=== PATIENT | female | born 1995 | race Caucasian/White ===

== ENCOUNTER 2016-10-10 10:40 | Emergency (ER) | payer OTHER ==
[2016-10-10 10:53] VITALS: BP 114/72; PULSE 88; TEMP 97.8; BMI 18.6
[2016-10-10] MEDS ORDERED: ONDANSETRON 4 MG/2 ML VIAL IVPB ONE (11:03)
[2016-10-10] MEDS ORDERED: ONDANSETRON 4 MG/2 ML VIAL ONE (11:06)
--- NOTE | 2016-10-10 11:14 | PDOC ---
History of Present Illness - General Chief Complaint: Syncope/Near Syncope Stated Complaint: SYNCOPE, FALL Time Seen by Provider: 10/10/16 10:44 - History of Present Illness Initial Comments: 10/10/16 11:14 21-year-old female with a past medical history of prior syncopal episodes in medical settings She otherwise has a negative past medical history, and her only medications at this time - iron, and multivitamins She is ALLERGIC to amoxicillin LMP 09/23/16, normal and on time Patient states that she went to the eye doctor's office today, and her eyes were dilated by the deep submergence vehicle operator While she was sitting in the chair, in the office, she started feeling presyncopal, like her usual She had a witnessed syncopal episode, slid off the chair, and struck her face on the exam table on her way down to the floor She came around quickly, but did have a few twitches when she passed out She states that she did not eat anything this morning Patient states that on some of her prior syncopal episodes she had a little bit of twitching with the episode, but had a workup, and has no history of a seizure disorder Patient states that she's had multiple syncopal episodes in the past in medical settings, and with blood draw She awakened quickly with this episode and vomited twice, which is a little different for her, but now is feeling back to herself She did scrape her forehead and nose, and denies any other head injury She states when she came around, they gave her something to drink and the deep submergence vehicle operator office She denies any recent intercurrent illnesses She denies any other injury Remainder of the review of systems is negative Past History - Past Medical History Allergies/Adverse Reactions: Allergies Allergy/AdvReac Type Severity Reaction Status Date / Time amoxicillin Allergy Verified 10/10/16 10:43 Home Medications: Ambulatory Orders Iron 45 mg PO DAILY 10/10/16 Peppermint Oil [Ibgard] 90 mg PO 10/10/16 GI Disorders: Yes (GERD) Other medical history: H/O FAINTING EPISODES - Psycho/Social/Smoking Cessation Hx Anxiety: No Suicidal Ideation: No Smoking History: Never smoked Information on smoking cessation initiated: No Hx Alcohol Use: (occasional) Substance Use Type: None *Physical Exam - Vital Signs Last Vital Signs Temp Pulse Resp BP Pulse Ox 97.8 F 88 16 114/72 99 10/10/16 10:40 10/10/16 10:40 10/10/16 10:40 10/10/16 10:40 10/10/16 10:40 - Physical Exam Comments: 10/10/16 11:26 Physical exam Last Vital Signs Temp Pulse Resp BP Pulse Ox 97.8 F 88 16 114/72 99 10/10/16 10:40 10/10/16 10:40 10/10/16 10:40 10/10/16 11:10 10/10/16 10:40 GENERAL: The patient is awake, alert, and fully oriented, and in no apparent distress. HEAD: Normal with no signs of trauma. There is a forehead abrasion, and a contusion on the bridge of the nose EYES: Pupils are dilated (patient just came from ophthalmology office after being given dilating drops ), extraocular movements intact, sclera anicteric, conjunctiva are normal. ENT: TMs normal, nares patent, oropharynx clear without exudates. Moist mucous membranes. There is an abrasion and contusion on the bridge of the nose, but no clinical evidence of a nasal bone fracture NECK: Normal range of motion, supple without lymphadenopathy, JVD, or masses. No C-spine tenderness LUNGS: Breath sounds equal, clear to auscultation bilaterally. No wheezes, and no crackles. HEART: Regular rate and rhythm, normal S1 and S2 without murmur, rub or gallop. ABDOMEN: Soft, nontender, normoactive bowel sounds. No guarding, no rebound. No masses appreciated. EXTREMITIES: Normal range of motion, no edema. No clubbing or cyanosis. No cords, erythema, or tenderness. NEURO: Mental status: The patient is oriented x3. Cranial nerves: Cranial nerves II through XII are intact Motor: The upper extremities are 5 over 5 in all muscle groups. The lower extremities are 5 over 5 in all muscle groups. Sensation: Sensation is intact to light touch throughout. Cerebellar: Cbzeaa-zimfvi-uunf is normal in both upper extremities. Heel-knee- chaidez is normal in both lower extremities. Gait: Normal. Heel and toe walking are normal. Tandem gait is normal. PSYCH: Normal mood, normal affect. SKIN: Warm, Dry, ED Treatment Course - LABORATORY CBC & Chemistry Diagram: 10/10/16 11:00 10/10/16 11:00 Medical Decision Making - Medical Decision Making 10/10/16 11:28 21-year-old female with a history of prior syncopal episodes in the medical setting, was in the deep submergence vehicle operator's office, and had another syncopal episode today, and she slid off the chair, and banged her forehead on the examining table on the way down She is alert, with a nonfocal neurologic exam, and feels back to herself right now There is no clinical indication for head CT at this time by clinical decision rules, especially since the syncope occurred first and then she struck her head on the way down EKG Normal sinus rhythm 67, normal axis Normal AV and IV conduction time Normal EKG 10/10/16 12:25 Labwork reviewed Laboratory Results - last 24 hr 10/10/16 10/10/16 10/10/16 11:00 11:00 11:00 WBC 9.9 RBC 4.55 Hgb 13.4 Hct 40.3 MCV 88.7 MCHC 33.4 RDW 12.4 Plt Count 259 MPV 8.9 Sodium 140 Potassium 3.9 Chloride 103 Carbon Dioxide 29 H Anion Gap 8 BUN 12 Creatinine 0.7 Creat Clearance w eGFR > 60 Random Glucose 117 H Calcium 9.7 Magnesium 2.1 Total Bilirubin 0.6 AST 17 ALT 16 Alkaline Phosphatase 48 Creatine Kinase 55 Troponin I < 0.03 L Total Protein 7.4 Albumin 4.5 Urine HCG, Qual 10/10/16 11:00 WBC RBC Hgb Hct MCV MCHC RDW Plt Count MPV Sodium Potassium Chloride Carbon Dioxide Anion Gap BUN Creatinine Creat Clearance w eGFR Random Glucose Calcium Magnesium Total Bilirubin AST ALT Alkaline Phosphatase Creatine Kinase Troponin I Total Protein Albumin Urine HCG, Qual Negative Patient feeling much better after IV normal saline and Zofran Ate a full lunch tray without difficulty Patient remains in normal sinus rhythm on the monitor Impression-syncopal episode in doctor's office, with facial and nasal abrasions , in a patient with history of prior syncopal episodes in medical settings *DC/Admit/Observation/Transfer Diagnosis at time of Disposition: Syncope, Facial abrasion - Discharge Dispostion Disposition: HOME Condition at time of disposition: Good - Patient Instructions Printed Discharge Instructions: DI for Syncope in Adults (Fainting) Additional Instructions: Clean the scrapes on your face with soap and water, you may apply some Neosporin if you like Rest and drink plenty of fluids today No sports or gym for 2 weeks Rest, take it easy for the next few days Followup with your primary care physician in 24-48 hours Return immediately if you worsen in any way
[2016-10-10] MEDS ORDERED: SODIUM CHLORIDE 1,000 ML IV SCH (11:15)
[2016-10-10 11:37] LABS: CPK(DFH) 55 IU/L (26-140)
[2016-10-10 11:38] LABS: ALBUMIN 4.5 g/dl (3.5-5.0); ALK PHOS 48 U/L (32-92); ANION GAP 8 (8-16); BILIRUBIN,TOTAL 0.6 mg/dl (0.2-1.0); CALCIUM 9.7 mg/dl (8.4-10.2); CO2 29 mmol/L (22-28); CREATININE 0.7 mg/dl (0.6-1.3); GLUCOSE,RANDOM 117 mg/dl (74-106); MAGNESIUM 2.1 mg/dL (1.8-2.4); SGOT/AST 17 U/L (10-42); SGPT/ALT 16 U/L (10-40); TOT PROT 7.4 g/dl (6.4-8.3)
[2016-10-10 11:59] LABS: MCH 29.6 pg (25.7-33.7); MCHC 33.4 g/dl (32.0-36.0); MEAN CELL VOLUME 88.7 fl (80-96); MEAN PLT VOLUME 8.9 fl (7.5-11.1); PLATELET COUNT 259 K/MM3 (134-434); RDW 12.4 % (11.6-15.6); WHITE BLOOD COUNT 9.9 K/mm3 (4.0-10.8)
[2016-10-10 12:19] LABS: TROPONIN I (DFP) < 0.03 ng/ml (0.03-0.50)
--- NOTE | 2016-10-14 10:57 | EKG ---
Test Reason : Blood Pressure : / mmHG Vent. Rate : 067 BPM Atrial Rate : 067 BPM P-R Int : 184 ms QRS Dur : 088 ms QT Int : 390 ms P-R-T Axes : 069 065 047 degrees QTc Int : 412 ms NORMAL SINUS RHYTHM NORMAL ECG NO PREVIOUS ECGS AVAILABLE Confirmed by PEDRO PABLO COCHRAN MD ([id number]) on 10/14/2016 10:56:31 AM Referred By: CHIDI Confirmed By:PEDRO PABLO COCHRAN MD
== END 2016-10-10 12:45 | disposition home or self-care (01) ==
LOC: FER 10:40
PROC: 3E033GC Introduction of Other Therapeutic Substance into Peripheral Vein, Percutaneous Approach (ICD-10-PCS; principal; 2016-10-10)
PROC: 3E0337Z Introduction of Electrolytic and Water Balance Substance into Peripheral Vein, Percutaneous Approach (ICD-10-PCS; 2016-10-10)
DX: R55 Syncope and collapse (principal); S00.81XA Abrasion of other part of head, initial encounter; W18.30XA Fall on same level, unspecified, initial encounter; Y93.89 Activity, other specified; Y92.531 Health care provider office as the place of occurrence of the external cause; K21.9 Gastro-esophageal reflux disease without esophagitis
CPT/HCPCS: 36415; 80053; 82550; 83735; 84484; 84703; 85027; 93005; 99285-25